=== PATIENT | male | born 1935 | race Caucasian/White ===

== ENCOUNTER 2017-12-05 10:56 | Observation (INO) ==
--- NOTE | 2017-12-05 11:42 | ED ---
HPI General Chief complaint: Respiratory Symptoms Stated complaint: Cough/Cold x 2wks Time Seen by Provider: 12/05/17 11:35 History of Present Illness HPI narrative: 81-year-old male with a history of hypertension, hyperlipidemia, hypothyroidism, Parkinson's disease presents to the emergency department for evaluation of shortness of breath. The patient states that 2 weeks ago he had a cold with runny nose and cough. States that the cold symptoms resolved however over the last week the cough has persisted and he is now feeling chest tightness and slight shortness of breath. States that he has a history of pneumonia in the past and is concerned that he may have pneumonia again. He was taking [id number] Coricidin for his cold symptoms. He has not taken anything else so far for his symptoms. He denies any fever, chills, nausea, vomiting, chest pain, lightheadedness, dizziness. Denies any history of lung disease such as asthma or COPD. Patient recently moved here from [place] and does not yet have a PCP. No other complaints. Related Data Home Medications Medication Instructions Recorded Confirmed carbidopa-levodopa 1 tab PO TID 12/05/17 12/05/17 hydrochlorothiazide 25 mg PO DAILY 12/05/17 12/05/17 levothyroxine 50 mcg PO DAILY 12/05/17 12/05/17 metoprolol tartrate 50 mg PO BID 12/05/17 12/05/17 simvastatin 40 mg PO DAILY 12/05/17 12/05/17 Allergies Allergy/AdvReac Type Severity Reaction Status Date / Time No Known Allergies Allergy Unverified 12/05/17 11:08 Review of Systems ROS: all other systems reviewed are negative PMFSH Medical History Medical History Parkinson disease (Acute) Patient denies medical problems (Acute) Social History Social History Substance History: No History of Abuse Smoking Status: Never smoker How Often Do You Have a Drink Containing Alcohol: Never Recent Travel in [place] within the Last 8 Weeks: No Recent Out of Country Travel within the Last 8 Weeks: No Immunization History Tetanus Immunization: Unsure Hx Influenza Vaccine This Season: Yes Exam Narrative Exam Narrative: GENERAL: Well-nourished and well-developed pleasant patient in no acute distress who is nontoxic appearing. SKIN: Warm and dry. HEAD: Normocephalic and atraumatic. EYES: No injection, drainage, or hyphema noted. PERRLA. EOMI. ENT: No nasal drainage noted. Oropharynx is clear and the TMs are normal with good landmarks. NECK: Supple and the trachea is midline. CARDIOVASCULAR: Regular rate and rhythm. RESPIRATORY: Wheezing noted to left lower lobe. No accessory muscle use, rhonchi, or crackles. GASTROINTESTINAL: Abdomen is soft, non-tender, and nondistended. No hepatosplenomegaly. MUSCULOSKELETAL: No obvious deformities, swelling, cyanosis, or ecchymosis is present throughout the upper and lower extremities. Patient has full range of motion without any signs of neurovascular compromise. Distal pulses are 2+ throughout. NEUROLOGICAL: Awake, alert, and oriented. Normal speech and gait. Cranial nerves are grossly intact. Course Initial Documented Vital Signs Temperature 98.3 F 12/05/17 11:01 Pulse Rate 80 12/05/17 11:01 Respiratory Rate 16 12/05/17 11:01 Blood Pressure 179/81 H 12/05/17 11:01 Pulse Oximetry 92 L 12/05/17 11:01 Last Documented Vital Signs Temperature 98.3 F 12/05/17 11:01 Pulse Rate 70 12/05/17 13:36 Respiratory Rate 18 12/05/17 13:36 Blood Pressure 116/63 12/05/17 13:36 Pulse Oximetry 95 12/05/17 13:36 Medical Decision Making [facility] Narrative Medical decision making narrative: 81-year-old male presents to the emergency department for evaluation of cough and cold symptoms with chest tightness and shortness of breath. Patient is afebrile. Vital signs are stable. His oxygen saturation is noted to be low at 92% on room air. Patient is in no acute distress. He does have wheezing noted to the left lower lobe. Chest x-ray has been ordered and is pending. Nebulizer treatments administered x 3 and Solu- Medrol 125 mg. Patient reassessed and he is moving air better however still has diffuse wheezing. Patient's oxygen saturation improved to 93% on room. Patient will be kept in observation for IV antibiotics and nebulizers for pneumonia. Zithromax and Rocephin ordered. I spoke with Dr. Booker [facility] who agrees to accept the patient to his service. Medical Screen Exam Complete: Yes Emergency Medical Condition: Yes Differential Diagnosis Differential Diagnosis: Bronchitis versus pneumonia versus URI Lab Data Result diagrams: 12/05/17 12:45 12/05/17 12:45 Lab Results 12/05/17 12/05/17 Range/Units 12:45 12:45 CBC w Diff Slide review pending WBC 8.0 (4.0-11.0) th/mm3 RBC 5.45 (4.50-5.90) mil/mm3 Hgb 15.7 (13.0-17.0) gm/dL Hct 47.0 (39.0-51.0) % MCV 86.3 (80.0-100.0) fL MCH 28.8 (27.0-34.0) pg MCHC 33.3 (32.0-36.0) % RDW 12.8 (11.6-17.2) % Plt Count 246 (150-450) th/mm3 MPV 8.4 (7.0-11.0) fL WBC Differential Manual diff final Seg Neuts % (Manual) 55 (16-70) % Lymphocytes % (Manual) 23 (9-44) % Monocytes % (Manual) 11 H (0-8) % Eosinophils % (Manual) 11 H (0-4) % Abs Neuts (Manual) 4.4 (1.8-7.7) th/mm3 Differential Comment . Platelet Estimate Normal (Normal) Platelet Morphology Normal (Normal) Sodium 139 (136-145) meq/L Potassium 3.8 (3.5-5.1) meq/L Chloride 102 (98-107) meq/L Carbon Dioxide 28.7 (21.0-32.0) meq/L Anion Gap 8 (5-15) meq/L BUN 22 H (7-18) mg/dL Creatinine 1.10 (0.60-1.30) mg/dL Estimated GFR 64 L (>89) mL/min Random Glucose 113 H (74-106) mg/dL Calcium 9.3 (8.5-10.1) mg/dL Total Bilirubin 0.5 (0.2-1.0) mg/dL AST 29 (15-37) U/L ALT 11 L (12-78) U/L Alkaline Phosphatase 121 H (45-117) U/L Total Protein 7.6 (6.4-8.2) g/dL Albumin 3.5 (3.4-5.0) g/dL Imaging Data Radiologist's impression: Chest X-Ray 12/05/17 11:41 CONCLUSION: Left basilar airspace disease or atelectasis with mild basilar linear scarring. Old right rib fractures. Discharge Plan Discharge Disposition Patient Disposition: 30 Still Patient Discharge Condition Condition: Stable Discharge Details Diagnosis: CAP (community acquired pneumonia) Physicians Team ED Provider: Thiago Gu ED Midlevel Provider: Lata Skinner Primary Care Provider: Primary Care Aliyah Rock Rxs /Orders / Referrals /Forms Prescriptions: No Action simvastatin 40 mg Tablet 40 mg PO DAILY RF: 0 metoprolol tartrate 50 mg Tablet 50 mg PO BID RF: 0 hydrochlorothiazide 25 mg Tablet 25 mg PO DAILY RF: 0 carbidopa-levodopa 25-100 mg Tablet 1 tab PO TID RF: 0 levothyroxine 50 mcg Capsule 50 mcg PO DAILY RF: 0 Discharge Interventions Interventions: Vital Signs Last Done: 12/05/17 13:36 Status ED Status: With Doctor
--- NOTE | 2017-12-05 12:01 | XR ---
EXAM DATE: 12/05/2017 11:58 AM EDT AGE/SEX: 81 years / Male INDICATIONS: . Short of breath, cough CLINICAL DATA: This is the patient's initial encounter. Patient reports that signs and symptoms have been present for 1 week and indicates a pain score of 0/10. MEDICAL/SURGICAL HISTORY: None. None. COMPARISON: No prior exams available for comparison. FINDINGS: Minimal linear scarring at the bases. Old right-sided rib fractures are seen. No effusion. On the lat eral view there is increased density posteriorly at the lung bases which may reflect left lower lobe airspace disease or atelectasis. Degenerative changes of the spine are present. Cardiomegaly. Degener ative changes of the spine. CONCLUSION: Left basilar airspace disease or atelectasis with mild basilar linear scarring. Old right rib fractures. Electronically signed by: Gilmar Collins MD 12/05/2017 12:00 PM EDT
[2017-12-05] MEDS ORDERED: MethylPREDNISolone Sod Succinate Inj 125 MG/2 ML Vial IV.PUSH ONE (12:25)
[2017-12-05] MEDS ORDERED: Azithromycin Inj 500 MG in Sodium Chlor 0.9% Inj 250 ML IV.SIG ONE (12:25)
[2017-12-05 12:57] LABS: Hemoglobin 15.7 gm/dL (13.0-17.0); Mean Corpuscular HGB Conc 33.3 % (32.0-36.0); Mean Corpuscular Hemoglobin 28.8 pg (27.0-34.0); Mean Corpuscular Volume 86.3 fL (80.0-100.0); Mean Platelet Volume 8.4 fL (7.0-11.0); Platelet Count 246 th/mm3 (150-450); Red Blood Count 5.45 mil/mm3 (4.50-5.90); Red Cell Distribution Width 12.8 % (11.6-17.2)
[2017-12-05 13:09] LABS: Chloride 102 meq/L (98-107); Sodium 139 meq/L (136-145)
[2017-12-05 13:12] LABS: Calcium 9.3 mg/dL (8.5-10.1)
[2017-12-05 13:13] LABS: Albumin 3.5 g/dL (3.4-5.0); Anion Gap 8 meq/L (5-15); Blood Urea Nitrogen 22 mg/dL (7-18); Carbon Dioxide 28.7 meq/L (21.0-32.0); Glucose,Random 113 mg/dL (74-106)
[2017-12-05 13:16] LABS: Alanine Aminotransferase 11 U/L (12-78); Aspartate Aminotransferase 29 U/L (15-37); Glomerular Filtration Rate 64 mL/min (>89)
[2017-12-05 13:17] LABS: Total Protein 7.6 g/dL (6.4-8.2)
[2017-12-05 13:18] LABS: Alkaline Phosphatase 121 U/L (45-117)
[2017-12-05 13:19] LABS: Eosinophils 11 % (0-4); Lymphocytes 23 % (9-44); Monocytes 11 % (0-8); Platelet Estimate Normal (Normal); Platelet Morphology Normal (Normal)
[2017-12-05 13:26] LABS: Potassium 3.8 meq/L (3.5-5.1)
[2017-12-05] MEDS ORDERED: Acetaminophen 325 MG Tablet PO PRN (14:08)
[2017-12-05] MEDS ORDERED: Bisacodyl 10 MG Supp RECTAL PRN (14:08)
--- NOTE | 2017-12-05 15:24 | P.HP ---
History of Present Illness Service: Hospitalist service Primary Care Physician: No Primary Care Physician Chief Complaint: Shortness of breath History of Present Illness: Mr. Lorenzo is a pleasant 81 year old male with a history of hypertension, hyperlipidemia, hypothyroidism, Parkinson's disease who presents to the ED on 12/05/2017 due to worsening shortness of breath and cough. About 2 weeks ago patient had an episode of cold which resolves but his chest tightness and shortness of breath as well as cough did not get better. In the last few days he had low-grade fever per his . His cough is dry. In the ED, patient received breathing tx as well as IV Solu-Medrol. Chest x-ray shows left basilar airspace. Patient denies any nausea, vomiting, abdominal pain. Denies any changes in bowel or bladder habits. Past medical history: Parkinson's disease, hypertension, hyperlipidemia Past surgical history: No major surgeries. Social history: Denies using tobacco, alcohol, illicit drugs. Family history: No family history of Alzheimer's or Parkinson's. Review of Systems All other systems reviewed negative except as stated [facility] - History History Provided By: Patient - Medical History Medical History: Medical History (Last Updated 12/05/17 @ 11:03 by Karuna Monsivais RN) Parkinson disease Patient denies medical problems - Tobacco History Smoking Status: Never smoker - Alcohol History How Often Do You Have a Drink Containing Alcohol: Never - Substance Use History Substance History: No History of Abuse - Travel History Recent Travel in the USA Within the Last 8 Weeks: No Recent Travel Out of the Country Within the Last 8 Weeks: No - Immunization History Tetanus Immunization: Unsure Hx Influenza Vaccine This Season: Yes Medications and Allergies Active Medications: Active Medications Acetaminophen (Tylenol) 650 mg PO Q4H PRN PRN Reason: Headache, fever, pain 1-4 Al Hydroxide/Mg Hydroxide (Milk Of Magnesia Liq) 30 ml PO Q12H PRN PRN Reason: Mild Constipation Albuterol (Albuterol Neb (Prn)) 2.5 mg NEB Q15M PRN PRN Reason: SHORTNESS OF BREATH/WHEEZING Last Admin: 12/05/17 12:22 Dose: 2.5 mg Bisacodyl (Dulcolax Supp) 10 mg RECTAL DAILY PRN PRN Reason: SEVERE CONSITIPATION Lactulose (Lactulose Liq) 30 ml PO DAILY PRN PRN Reason: SEVERE CONSITIPATION Ondansetron HCl (Zofran Inj) 4 mg IV.PUSH Q6H PRN PRN Reason: NAUSEA OR VOMITING Sennosides (Senokot) 17.2 mg PO Q12H PRN PRN Reason: Moderate Constipation Allergies Allergy/AdvReac Type Severity Reaction Status Date / Time No Known Allergies Allergy Unverified 12/05/17 11:08 Home Medications Medication Instructions Recorded Confirmed Type carbidopa-levodopa 1 tab PO TID 12/05/17 12/05/17 History hydrochlorothiazide 25 mg PO DAILY 12/05/17 12/05/17 History levothyroxine 50 mcg PO DAILY 12/05/17 12/05/17 History metoprolol tartrate 50 mg PO BID 12/05/17 12/05/17 History simvastatin 40 mg PO DAILY 12/05/17 12/05/17 History Exam Vital signs: Vital Signs 12/05/17 11:01 12/05/17 12:02 12/05/17 12:12 Temperature 98.3 F Pulse Rate 80 68 67 Respiratory Rate 16 19 18 Blood Pressure 179/81 H Pulse Oximetry 92 L 12/05/17 12:22 12/05/17 12:46 12/05/17 12:52 Temperature Pulse Rate 80 74 77 Respiratory Rate 19 18 Blood Pressure 125/82 Pulse Oximetry 2 L 92 L 12/05/17 13:36 Temperature Pulse Rate 70 Respiratory Rate 18 Blood Pressure 116/63 Pulse Oximetry 95 Intake & Output 12/04/17 12/05/17 12/05/17 18:59 06:59 18:59 Intake Total 350 / 350 Balance 350 / 350 Weight 109 kg Intake: IV 350 / 350 Azithromycin Inj 500 MG In NS 250 / 250 Inj 250 ML @ 250 mls/hr IV.SIG ONCE ONE Rx#:[id number] Rocephin Inj 1,000 MG In NS Inj 100 / 100 100 ML @ 200 mls/hr IV.SIG ONCE ONE Rx#:[id number] Narrative: GENERAL: This is a well-nourished, well-developed patient, in no apparent distress. SKIN: No rashes, ecchymoses or lesions. Warm and dry. HEAD: Atraumatic. Normocephalic. No temporal or scalp tenderness. EYES: Pupils equal round and reactive. No injection or drainage. ENT: Nose without bleeding, purulent drainage or septal hematoma. Airway patent. NECK: Trachea midline. No lymphadenopathy. Supple, nontender, no meningeal signs. CARDIOVASCULAR: Regular rate and rhythm without murmurs, gallops, or rubs. No JVD. RESPIRATORY: Moderate air entry, coarse breath sounds throughout the lung villalobos. No wheezing noted. GASTROINTESTINAL: Abdomen soft, non-tender, nondistended. No guarding. MUSCULOSKELETAL: Extremities without clubbing, cyanosis, or edema. NEUROLOGICAL: Awake and alert. Cranial nerves II through XII intact. No focal neurological deficits. Normal speech. Results - Labs CBC & Chem 7: 12/05/17 12:45 12/05/17 12:45 Labs: Laboratory Results - last 24 hr 12/05/17 12/05/17 12:45 12:45 CBC w Diff Slide review pending WBC 8.0 RBC 5.45 Hgb 15.7 Hct 47.0 MCV 86.3 MCH 28.8 MCHC 33.3 RDW 12.8 Plt Count 246 MPV 8.4 WBC Differential Manual diff final Seg Neuts % (Manual) 55 Lymphocytes % (Manual) 23 Monocytes % (Manual) 11 H Eosinophils % (Manual) 11 H Abs Neuts (Manual) 4.4 Differential Comment . Platelet Estimate Normal Platelet Morphology Normal Sodium 139 Potassium 3.8 Chloride 102 Carbon Dioxide 28.7 Anion Gap 8 BUN 22 H Creatinine 1.10 Estimated GFR 64 L Random Glucose 113 H Calcium 9.3 Total Bilirubin 0.5 AST 29 ALT 11 L Alkaline Phosphatase 121 H Total Protein 7.6 Albumin 3.5 - Imaging Impressions Chest X-Ray 12/05/17 11:41 CONCLUSION: Left basilar airspace disease or atelectasis with mild basilar linear scarring. Old right rib fractures. Caprini VTE Risk Assessment Caprini VTE Risk Assessment: Moderate/High Risk (score >= 2) Caprini Risk Assessment Model: Point Value = 1 Point Value = 2 Point Value = 3 Point Value = 5 Age 41-60 Minor surgery BMI > 25 kg/m2 Swollen legs Varicose veins or History of unexplained or recurrent spontaneous Oral contraceptives or hormone replacement Sepsis (< 1 month) Serious lung disease, including pneumonia (< 1 month) Abnormal pulmonary function Acute myocardial infarction Congestive heart failure (< 1 month) History of inflammatory bowel disease Medical patient at bed rest Age 61-74 Arthroscopic surgery Major open surgery (> 45 min) Laparoscopic surgery (> 45 min) Malignancy Confined to bed (> 72 hours) Immobilizing plaster cast Central venous access Age >= 75 History of VTE Family history of VTE Factor V Leiden Prothrombin [id number] Lupus anticoagulant Anticardiolipin antibodies Elevated serum homocysteine Heparin-induced thrombocytopenia Other congenital or acquired thrombophilia Stroke (< 1 month) Elective arthroplasty Hip, pelvis, or leg fracture Acute spinal cord injury (< 1 month) Prophylaxis Regimen: Total Risk Factor Score Risk Level Prophylaxis Regimen 0-1 Low Early ambulation 2 Moderate Order ONE of the following: *Sequential Compression Device (SCD) *Heparin 5000 units SQ BID 3-4 Higher Order ONE of the following medications: *Heparin 5000 units SQ TID *Enoxaparin/Lovenox 40 mg SQ daily (WT < 150 kg, CrCl > 30 mL/min) *Enoxaparin/Lovenox 30 mg SQ daily (WT < 150 kg, CrCl > 10-29 mL/min) *Enoxaparin/Lovenox 30 mg SQ BID (WT < 150 kg, CrCl > 30 mL/min) AND/OR *Sequential Compression Device (SCD) 5 or more Highest Order ONE of the following medications: *Heparin 5000 units SQ TID (Preferred with Epidurals) *Enoxaparin/Lovenox 40 mg SQ daily (WT < 150 kg, CrCl > 30 mL/min) *Enoxaparin/Lovenox 30 mg SQ daily (WT < 150 kg, CrCl > 10-29 mL/min) *Enoxaparin/Lovenox 30 mg SQ BID (WT < 150 kg, CrCl > 30 mL/min) AND *Sequential Compression Device (SCD) Assessment and Plan - Plan Mr. Lorenzo is a pleasant 81-year-old male with a history of Parkinson's disease, hypertension who presents to the emergency department due to worsening cough and a feeling of chest tightness. His symptoms started 10 days ago when he caught a cold. Denies any significant fever or chills. Community-acquired pneumonia -We will keep patient on Levaquin 750 mg p.o. daily. -Is currently on 1 L of oxygen and O2 saturation above 95%. Will try to wean him off. -Start prednisone 20 mg twice daily. DuoNeb scheduled and as needed. Parkinson's disease Hypertension Hyperlipidemia -Continue home medications. Full code. SCDs.
[2017-12-05] MEDS: predniSONE 20 MG Tablet PO SCH (20:09)
[2017-12-06] MEDS ORDERED: Levothyroxine 50 MCG Tablet PO SCH (06:00)
[2017-12-06 07:25] VITALS: BP 137/61; TEMP 96.4
[2017-12-06 07:42] VITALS: PULSE 84; RESP 18; O2SAT 94
[2017-12-06] MEDS: predniSONE 20 MG Tablet PO SCH (08:27)
[2017-12-06] MEDS ORDERED: levoFLOXacin 750 MG Tablet PO SCH (09:00)
--- NOTE | 2017-12-06 14:14 | P.PN ---
Subjective Interval history: Follow up for PNA. Patient is doing well. Ambulating in the room in room air. Still coughing. Would like to go home. Physical Exam Vital signs: Vital Signs 12/05/17 15:43 12/05/17 16:00 12/05/17 19:30 Temperature 97.9 F Pulse Rate 88 97 H Respiratory Rate 18 18 Blood Pressure 149/67 H Pulse Oximetry 96 96 94 L 12/05/17 20:00 12/06/17 00:00 12/06/17 07:25 Temperature 96 F L 96.6 F L 96.4 F L Pulse Rate 99 H 81 69 Respiratory Rate 20 20 20 Blood Pressure 118/56 L 117/56 L 137/61 Pulse Oximetry 91 L 92 L 93 L 12/06/17 07:40 12/06/17 08:00 Temperature Pulse Rate 84 Respiratory Rate 18 18 Blood Pressure Pulse Oximetry 94 L 94 L Intake & Output 12/05/17 12/06/17 12/06/17 18:59 06:59 18:59 Intake Total 470 / 470 480 / 480 Balance 470 / 470 480 / 480 Weight 109 kg 109 kg Intake: IV 350 / 350 Azithromycin Inj 500 MG In NS 250 / 250 Inj 250 ML @ 250 mls/hr IV.SIG ONCE ONE Rx#:[id number] Rocephin Inj 1,000 MG In NS Inj 100 / 100 100 ML @ 200 mls/hr IV.SIG ONCE ONE Rx#:[id number] Oral 120 / 120 480 / 480 Other: # Voids 3 # Bowel Movements 1 Narrative: GENERAL: Alert, Oriented x 3, NAD. SKIN: Warm and dry. HEAD: Normocephalic. EYES: No scleral icterus. No injection or drainage. NECK: Supple, trachea midline. No JVD or lymphadenopathy. CARDIOVASCULAR: Regular rate and rhythm without murmurs, gallops, or rubs. RESPIRATORY: Moderate air entry. Course breath sounds that was noted yesterday - much improved today. GASTROINTESTINAL: Abdomen soft, non-tender, nondistended. MUSCULOSKELETAL: No cyanosis, or edema. BACK: Nontender without obvious deformity. No CVA tenderness. Results - Labs CBC & Chem 7: 12/05/17 12:45 12/05/17 12:45 Assessment and Plan - Plan Mr. Lorenzo is a pleasant 81-year-old male with a history of Parkinson's disease, hypertension who presents to the emergency department due to worsening cough and a feeling of chest tightness. His symptoms started 10 days ago when he caught a cold. Denies any significant fever or chills. Community-acquired pneumonia -Levaquin 750 mg p.o. daily. -On room air. -prednisone 20 mg twice daily. DuoNeb scheduled and as needed. Parkinson's disease Hypertension Hyperlipidemia -Continue home medications. -Encouraged patient to obtain PCP. They recently moved to [place] from [place]. Full code. SCDs.
== END 2017-12-06 10:32 | disposition home or self-care (01) ==
LOC: PHEFT 10:56 → PHEDA 10:56 → PH3 14:43
PROVIDERS: ADMIT Hospitalist; ATTEND Hospitalist
DX: I10 Essential (primary) hypertension; J18.9 Pneumonia, unspecified organism; E03.9 Hypothyroidism, unspecified; G20 Parkinson's disease; E78.5 Hyperlipidemia, unspecified; Z87.01 Personal history of pneumonia (recurrent)